=== PATIENT | male | born 1985 | race Two or more races ===

== ENCOUNTER 2016-11-30 07:12 | Emergency (ER) | payer OTHER ==
[2016-11-30 07:42] VITALS: BP 132/90; PULSE 71; TEMP 98.5; BMI 29.7
[2016-11-30] MEDS ORDERED: CYCLOBENZAPRINE HCL 10 MG TABLET (FP) PO ONE (08:41)
[2016-11-30] MEDS ORDERED: KETOROLAC TROMETHAMINE 60 MG/2 ML VIAL IM ONE (08:41)
[2016-11-30] MEDS ORDERED: KETOROLAC TROMETHAMINE 60 MG/2 ML VIAL ONE (08:45)
[2016-11-30] MEDS ORDERED: CYCLOBENZAPRINE HCL 10 MG TABLET (FP) ONE (08:45)
[2016-11-30 09:34] LABS: URINE APPEARANCE SLCLOUDY; URINE BILIRUBIN NEGATIVE (NEGATIVE); URINE BLOOD NEGATIVE (NEGATIVE); URINE COLOR YELLOW; URINE GLUCOSE (UA) NEGATIVE (NEGATIVE); URINE KETONE NEGATIVE (NEGATIVE); URINE NITRITE NEGATIVE (NEGATIVE); URINE PROTEIN NEGATIVE (NEGATIVE); URINE UROBILINOGEN NEGATIVE mg/dL (0.2-1.0)
--- NOTE | 2016-11-30 10:15 | PDOC ---
History of Present Illness - General Chief Complaint: Back Pain Stated Complaint: LOWER BACK PAIN Time Seen by Provider: 11/30/16 08:29 History Source: Patient Exam Limitations: No Limitations - History of Present Illness Initial Comments: 11/30/16 09:07 31 y/o male with left lower back pain worsened with sitting and prolonged standing radiating down his left buttock for the past 2 weeks. Patient states has had intermittent discomfort in the past but states has never seek medical advice. Patient states took nothing for the pain and decided come to the ER. Patient denies weakness of the lower extremities, swelling of the lower extremities, rash, recent injury, or exertional lifestyle. Timing/Duration: getting worse, intermittent Severity: moderate Associated Symptoms: denies: weakness Past History - Travel Traveled outside of the country in the last 30 days: No Close contact w/someone who was outside of country & ill: No - Past Medical History Allergies/Adverse Reactions: Allergies Allergy/AdvReac Type Severity Reaction Status Date / Time No Known Allergies Allergy Verified 11/30/16 07:39 Home Medications: Ambulatory Orders Albuterol Sulfate Inhaler - [Ventolin Hfa Inhaler -] 1 - 2 inh PO Q4H PRN Asthma: Yes Cancer: Yes - Suicide/Smoking/Psychosocial Hx Smoking Status: No Smoking History: Never smoked Number of Cigarettes Smoked Daily: 0 Information on smoking cessation initiated: No Hx Alcohol Use: Yes (SOCIAL) Substance Use Type: None Patient Lives Alone: No Lives with/in: spouse/SO Review of Systems - Review of Systems Able to Perform ROS?: Yes Constitutional: No: Symptoms Reported Respiratory: No: Symptoms reported Cardiac (ROS): No: Symptoms Reported : No: Symptoms Reported Musculoskeletal: Yes: Back Pain, Muscle Pain (left buttock) Integumentary: No: Symptoms Reported Neurological: No: Symptoms reported, Numbness, Paresthesia, Tingling, Weakness, Dizziness Hematologic/Lymphatic: No: Symptoms Reported *Physical Exam - Vital Signs Last Vital Signs Temp Pulse Resp BP Pulse Ox 98.5 F 71 19 132/90 97 11/30/16 07:40 11/30/16 07:40 11/30/16 07:40 11/30/16 07:40 11/30/16 07:40 - Physical Exam General Appearance: Yes: Nourished, Appropriately Dressed. No: Apparent Distress Neck: positive: Supple. negative: Tender, Decreased range of motion Respiratory/Chest: positive: Lungs Clear, Normal Breath Sounds Cardiovascular: positive: Regular Rhythm, Regular Rate. negative: Murmur Gastrointestinal/Abdominal: positive: Soft. negative: Tenderness Musculoskeletal: positive: CVA Tenderness (L) (mild), Muscle Spasm (left paraspinous at L5 L4 level). negative: Decreased Range of Motion, Vertebral Tenderness (no midline tenderness) Extremity: positive: Normal Capillary Refill, Normal Range of Motion, Tender ( no midline tenderness). negative: Normal Inspection, Pedal Edema, Calf Tenderness Integumentary: positive: Normal Color, Warm, Moist Neurologic: positive: Normal Mood/Affect, Motor Strength 5/5 (ambulatory) ED Treatment Course - ADDITIONAL ORDERS Additional order review: Laboratory Results 11/30/16 09:09 Urine Color Yellow Urine Appearance Slcloudy Urine pH 5.0 Urine Protein Negative Urine Glucose (UA) Negative Urine Ketones Negative Urine Blood Negative Urine Nitrite Negative Urine Bilirubin Negative Urine Urobilinogen Negative - RADIOLOGY Radiology Studies Ordered: Category Date Time Status SPINE-LUMBAR ONLY [RAD] Stat Radiology 11/30/16 08:41 Completed - Medications Given in the ED: ED Medications Discontinued Medications Generic Name Dose Route Start Last Admin Trade Name Freq PRN Reason Stop Dose Admin Cyclobenzaprine HCl 5 mg 11/30/16 08:41 11/30/16 09:08 Flexeril - PO 11/30/16 08:42 5 mg ONCE ONE Administration Ketorolac Tromethamine 60 mg 11/30/16 08:41 11/30/16 09:08 Toradol Injection - IM 11/30/16 08:42 60 mg ONCE ONE Administration Medical Decision Making - Medical Decision Making 11/30/16 09:12 Pt here with complaints of low back pain radiating to left buttock. Patient exam had mild left CVA tenderness along with left sciatica pain. Patient with likely lumbar strain with muscle spasm. Patient ordered for urine to rule out urology etiology, lumbar x-ray to rule out mass versus herniation, and analgesics. 11/30/16 10:15 Laboratory Tests 11/30/16 09:09 Urine Nitrite Negative Urine Urobilinogen Negative 11/30/16 10:16 Patient states feeling much better and able to ambulate sit without difficulty. Patient be discharged home with Motrin and Flexeril. *DC/Admit/Observation/Transfer Diagnosis at time of Disposition: Sciatica of left side - Discharge Dispostion Disposition: HOME Condition at time of disposition: Improved - Referrals Referrals: Camryn Blair MD [Primary Care Provider] - - Patient Instructions Printed Discharge Instructions: DI for Back Pain With Sciatica Additional Instructions: Please Take Motrin and Flexeril as needed for pain. Please avoid trigger that cause discomfort.
[2016-11-30 15:18] LABS: URINE LEUK ESTERASE Negative (NEGATIVE)
== END 2016-11-30 10:31 | disposition home or self-care (01) ==
LOC: JER 07:12
PROC: 3E0233Z Introduction of Anti-inflammatory into Muscle, Percutaneous Approach (ICD-10-PCS; principal; 2016-11-30)
DX: M54.42 Lumbago with sciatica, left side (principal)
CPT/HCPCS: 72100-TC; 81003; 99282-25